=== PATIENT | female | born 1970 | race Caucasian/White ===

== ENCOUNTER 2016-06-30 19:47 | Emergency (ER) | payer MEDICAID, OTHER ==
[~2016-06-30] VITALS: Ht 165.1 cm; Wt 99.0 kg
[~2016-06-30 19:47] MED LIST: ATEN50TA PO; GLIP5TAB12 PO; IPRA4AER IH; LEVO137T2 PO; METF10002 PO
[2016-06-30 21:02] LABS: CHLORIDE 105 mEq/L (98-107); INDEX HEMOLYSI 1 (1-3); INDEX ICTERIC 1 (1-4); INDEX LIPEMIC 1 (1-3)
[2016-06-30 21:04] LABS: BASOPHILS % 0.3 % (0.0-2.0); EOSINOPHILS % 1.9 % (0.0-5.0); HEMATOCRIT. 37.5 % (36.0-48.0); HEMOGLOBIN. 12.6 g/dL (12.0-16.0); LYMPHOCYTES % 39.3 % (20.0-50.0); MEAN CORPUSCULAR HEMOGLOBIN 28.5 pg (28.0-32.0); MEAN CORPUSCULAR HGB CONC 33.6 g/dL (31.0-37.0); MEAN CORPUSCULAR VOLUME 84.9 fL (81.0-99.0); MEAN PLATELET VOLUME 7.8 fl (7.4-10.4); MONOCYTES % 8.3 % (2.0-8.0); NEUTROPHILS % 50.2 % (40.0-76.0); PLATELET 230 x1000/uL (130-400); RED BLOOD CELL COUNT 4.42 mill/uL (4.2-5.4); RED CELL DISTRIBUTION WIDTH 14.2 % (11.6-14.6); WHITE BLOOD COUNT 6.8 x1000/uL (4.5-11.0)
[2016-06-30 21:05] LABS: PROTHROMBIN TIME 10.8 sec
[2016-06-30 21:08] LABS: ALANINE AMINOTRANSFERASE 38 IU/L (13-61); ALBUMIN 3.5 g/dL (3.4-5.0); ANION GAP 12; CALCIUM 8.8 mg/dL (8.5-10.1); CARBON DIOXIDE 27 mEq/L (21-32); UREA NITROGEN BLOOD 9 mg/dL (7-21); eGFR > 60 mL/min (>60)
[2016-06-30 21:12] LABS: TROPONIN I < 0.02 ng/mL (0.00-0.04)
[2016-06-30 23:31] VITALS: BP 120/75
== END 2016-07-01 01:21 | disposition home or self-care (01) ==
LOC: ER 21:41
DX: R07.89 Other chest pain (principal); E11.9 Type 2 diabetes mellitus without complications; I10 Essential (primary) hypertension; J45.909 Unspecified asthma, uncomplicated; Z98.890 Other specified postprocedural states; Z88.0 Allergy status to penicillin; Z79.899 Other long term (current) drug therapy
CPT/HCPCS: 36415; 71010; 80053; 84484; 85025; 85610; 93005; 99285; Z7610

== ENCOUNTER 2016-08-15 18:12 | Emergency (ER) | payer OTHER | END 2016-08-15 18:40 | disposition left against medical advice (07) | LOC: ER 18:12 | DX: R10.9 Unspecified abdominal pain (principal); Z53.21 Procedure and treatment not carried out due to patient leaving prior to being seen by health care provider ==

== ENCOUNTER 2016-08-19 07:58 | Emergency (ER) | payer MEDICAID, OTHER ==
[~2016-08-19] VITALS: Ht 167.6 cm; Wt 106.0 kg
[2016-08-19 08:01] VITALS: BP 135/87
== END 2016-08-19 09:53 | disposition home or self-care (01) ==
LOC: ER 08:16
DX: M54.5 Low back pain (principal); Z88.0 Allergy status to penicillin; Z79.899 Other long term (current) drug therapy; I10 Essential (primary) hypertension; E11.9 Type 2 diabetes mellitus without complications; J45.909 Unspecified asthma, uncomplicated
CPT/HCPCS: 99281

== ENCOUNTER 2016-09-26 04:33 | Emergency (ER) | payer OTHER ==
[~2016-09-26] VITALS: Ht 167.6 cm; Wt 100.0 kg
[2016-09-26 06:00] VITALS: BP 142/72
== END 2016-09-26 06:38 | disposition home or self-care (01) ==
LOC: ER 04:33
DX: H60.92 Unspecified otitis externa, left ear (principal); R03.0 Elevated blood-pressure reading, without diagnosis of hypertension
CPT/HCPCS: 99283

== ENCOUNTER 2016-12-06 08:19 | Emergency (ER) | payer OTHER ==
[~2016-12-06] VITALS: Ht 167.6 cm; Wt 100.0 kg
[2016-12-06] MEDS ORDERED: KETOROLAC 60MG/2ML VIAL IM ONE (10:15)
[2016-12-06 10:31] LABS: CLARITY URINE CLOUDY (CLEAR); COLOR URINE DARK YELLOW (YELLOW); GLUCOSE URINE NEGATIVE (NEGATIVE); KETONES URINE TRACE (NEGATIVE); LEUKOCYTE ESTERASE URINE NEGATIVE (NEGATIVE); NITRITE URINE NEGATIVE (NEGATIVE); OCCULT BLOOD URINE NEGATIVE (NEGATIVE); PH URINE 5.5 (4.5-8.0); PROTEIN URINE NEGATIVE (NEGATIVE); SPECIFIC GRAVITY URINE 1.026 (1.005-1.030); UROBILINOGEN URINE 0.2 E.U./dL (0.2-1.0)
[2016-12-06 10:47] LABS: HCG SCREEN NEGATIVE
[2016-12-06 11:10] VITALS: BP 155/88
== END 2016-12-06 11:17 | disposition home or self-care (01) ==
LOC: ER 10:40
DX: N39.0 Urinary tract infection, site not specified (principal); I10 Essential (primary) hypertension; E11.9 Type 2 diabetes mellitus without complications; F31.9 Bipolar disorder, unspecified; Z86.59 Personal history of other mental and behavioral disorders; E03.9 Hypothyroidism, unspecified
CPT/HCPCS: 81001; 84703; 99284; J1885